=== PATIENT | male | born 1980 | race Caucasian/White ===

== ENCOUNTER 2016-05-19 11:44 | Emergency (ER) | payer SELFPAY | END 2016-05-19 13:14 | disposition home or self-care (01) | LOC: ER 11:44 | DX: R07.89 Other chest pain (principal); J44.9 Chronic obstructive pulmonary disease, unspecified; F17.210 Nicotine dependence, cigarettes, uncomplicated; Z88.0 Allergy status to penicillin | CPT/HCPCS: 36415; 96374 ==